=== PATIENT | female | born 1965 | race Caucasian/White ===

== ENCOUNTER → 2018-01-01 | Outpatient (CLI) | payer BC ==
--- NOTE | 2018-01-01 13:12 | US ---
EXAM DESCRIPTION: Abdomen,Complete CLINICAL HISTORY: GENERALIZED ABDOMINAL PAIN COMPARISON: None Available. TECHNIQUE: Complete abdominal ultrasound FINDINGS: Visualized portions of the pancreas are unremarkable. No peripancreatic fluid. Bowel gas obscures some areas. Normal caliber of the aorta. Normal appearance of the inferior vena cava. Liver parenchyma is homogeneous in texture with normal echogenicity. No liver mass or intrahepatic bile duct dilatation. No liver surface irregularity. Normal appearance of hepatic veins and portal vein. Gallbladder appears normal with no intraluminal stones. No gallbladder wall thickening. Common bile duct is normal in caliber measuring 2.4 mm. The right kidney measures 9.9 cm in length. Normal renal cortical echogenicity. The renal cortical thickness appears normal. No right renal mass, shadowing stone or cyst. There is no hydronephrosis. Spleen is normal in size. No focal splenic lesion. The left kidney measures 9.3 cm in length. This is slightly small for an adult. Normal renal cortical echogenicity. The renal cortical thickness appears normal. Tiny echogenic focus in the left renal cortex appears benign. Otherwise no left renal mass, shadowing stone or cyst. There is no hydronephrosis. IMPRESSION: No acute process is identified on sonographic examination of the upper abdomen. Electronically signed by: Meño Lundberg MD 01/01/2018 1:10 PM CDT
== END ==
LOC: US 12:20
PROVIDERS: ATTEND Family Medicine
DX: Z00.01 Encounter for general adult medical examination with abnormal findings (principal); R10.84 Generalized abdominal pain

== ENCOUNTER → 2018-01-06 | Outpatient (CLI) | payer BC | LOC: GMAB 11:50 | PROVIDERS: ATTEND Family Medicine | DX: R10.84 Generalized abdominal pain (principal) ==

== ENCOUNTER → 2019-05-06 | Outpatient (CLI) | payer BC ==
--- NOTE | 2019-05-10 15:44 | MAM ---
EXAM DESCRIPTION: 3D Screening BILATERAL : Digital Mammography. CLINICAL HISTORY: 53 years Female ANNUAL SCREENING . No personal or family history of breast cancer. No complaints. Childbirth. Hysterectomy 10+ years. No HRT.. Lifetime risk of developing breast cancer (Tyrer-Cuzick model)(%): 9.4. COMPARISON: Baseline study at this facility.. TECHNIQUE: Bilateral CC and MLO projection full-field images, digital tomosynthesis mammographic technique. Bilateral digital 2-D full-field MLO images. CAD not available for tomosynthesis or 2-D images. FINDINGS: The breast parenchymal density pattern is: Heterogeneously dense breast tissue, which may obscure small masses. No skin thickening or nipple retraction. Bilateral axillary lymph nodes. Focal asymmetry in the lower outer quadrant of the left breast middle third approximately 6 cm from the nipple at the 4:30 clock position. No definite microcalcifications. Focal asymmetry in the anterior third of the right breast lower outer quadrant at the 7 to 8:00 position, 3 cm from the nipple. No definite microcalcifications. IMPRESSION: BI-RADS CATEGORY: 0 - INCOMPLETE- Need additional imaging evaluation. FOLLOW-UP: Recall for additional imaging: Bilateral full-field LM projection 2-D and tomosynthesis images. Directed bilateral breast ultrasound to the regions of interest.. Written communication concerning the IMPRESSION and Follow-up, will be mailed to the patient and referring health care provider. Electronically signed by: Jaime Roldan MD 05/10/2019 3:42 PM CDT
== END ==
LOC: MAMMO 14:02
PROVIDERS: ATTEND Family Medicine
DX: Z12.31 Encounter for screening mammogram for malignant neoplasm of breast (principal)

== ENCOUNTER → 2020-04-11 | Outpatient (CLI) | payer BC | LOC: GMAE 10:26 | PROVIDERS: ATTEND Family Medicine | DX: I10 Essential (primary) hypertension (principal) ==